=== PATIENT | female | born 1960 | race Caucasian/White ===

== ENCOUNTER 2017-04-14 16:20 | Emergency (ER) | payer BC ==
--- NOTE | 2017-04-14 17:01 | UC ---
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 LANDED ON BUTTOCKS. HAS PAIN IN TAILBONE. PAIN WHEN SITTING. ALSO HAS PAIN IN LEFT WRIST. NOT SURE IF SHE STRUCK IT ON ANYTHING. DENIES HEAD INJURY OR LOC. HAS H/O OSTEOPOROSIS SO IS VERY CONCERNED ABOUT FRACTURE. - History of Current Complaint Chief Complaint: UCUpperExtremity Stated Complaint: WRIST AND TAILBONE INJURY Time Seen by Provider: 04/14/17 16:47 Hx Obtained From: Patient, Family/Airconditioning Drafting Officer - Onset/Duration: Sudden Onset, Lasting Hours, Still Present Onset Of Pain: Immediate Severity Initially: Moderate Severity Currently: Moderate Pain Intensity: 5 Pain Scale Used: 0-10 Numeric Mechanism Of Injury: Fall From A Standing Position Aggravating Factor(s): Movement, Other: - SITTING Alleviating Factor(s): Rest Associated Signs And Symptoms: Negative: Loss Of Consciousness, Ecchymosis, Swelling - Allergies/Home Medications Allergies/Adverse Reactions: Allergies Allergy/AdvReac Type Severity Reaction Status Date / Time Sulfa Antibiotics Allergy Rash And Verified 04/14/17 16:39 Itching Home Medications: Home Medications Levothyroxine TAB* [Synthroid 75 MCG TAB*] 75 mcg PO DAILY 04/14/17 [History Confirmed 04/14/17] PMH/Surg Hx/FS Hx/Imm Hx Endocrine History: Hypothyroidism - Surgical History Surgical History: Yes Surgery Procedure, Year, and Place: lumpectomy, bunion - Family History Known Family History: Positive: Hypertension - Social History Alcohol Use: Occasionally Substance Use Type: None Smoking Status (MU): Never Smoked Tobacco Review of Systems Constitutional: Negative Skin: Negative Respiratory: Negative Cardiovascular: Negative Gastrointestinal: Negative Musculoskeletal: Arthralgia, Decreased ROM All Other Systems Reviewed And Are Negative: Yes Physical Exam Triage Information Reviewed: Yes Appearance: Well-Appearing, No Pain Distress, Well-Nourished Vital Signs: Initial Vital Signs Temp 98.9 F 04/14/17 16:22 Pulse 82 04/14/17 16:22 Resp 20 04/14/17 16:22 BP 102/53 04/14/17 16:22 Pulse Ox 99 04/14/17 16:22 Vital Signs Reviewed: Yes Eyes: Positive: Conjunctiva Clear ENT: Positive: Hearing grossly normal Neck: Positive: Supple Respiratory: Positive: No respiratory distress, No accessory muscle use Cardiovascular: Positive: Pulses Normal Abdomen Description: Positive: Soft Musculoskeletal: Positive: No Edema, ROM Limited @ - LEFT WRIST, Other: - TTP COCCYX Neurological: Positive: Alert Psychological: Positive: Age Appropriate Behavior Skin: Negative: rashes Diagnostics - Radiology LEFT WRIST XRAY Xray Interpretation: Positive (See Comments) - SOFT TISSUE SWELLING, NO FRACTURE IS SEEN Radiology Interpretation Completed By: Radiologist SACRUM/COCCYX XRAY Xray Interpretation: No Acute Changes Radiology Interpretation Completed By: Radiologist Minor Trauma Course/Dx - Differential Dx/Diagnosis Provider Diagnoses: 1. LEFT WRIST SPRAIN. 2. COCCYX INJURY Discharge - Discharge Plan Condition: Stable Disposition: HOME Patient Education Materials: Coccyx Injury (ED), Wrist Sprain (ED) Referrals: Shantal Amezcua MD [Primary Care Provider] - If Needed Herrera Gonzáles MD [Medical Doctor] - If Needed Additional Instructions: XRAYS OF LEFT WRIST AND TAILBONE NEGATIVE FOR FRACTURE OR DISLOCATION TODAY. WRIST SPLINT FOR COMFORT. REST, ICE. FOLLOW-UP WITH PCP OR ORTHO IF NOT IMPROVING EXPECTED OVER THE NEXT 2 WEEKS.
--- NOTE | 2017-04-14 17:36 | RAD ---
INDICATION: Left wrist injury. TECHNIQUE: 3 views of the left wrist were obtained. FINDINGS: There is soft tissue swelling. The bones are in normal alignment. No fracture is seen. IMPRESSION: SOFT TISSUE SWELLING, NO FRACTURE IS SEEN. IF THE PATIENT'S SYMPTOMS PERSIST RECOMMEND FOLLOW-UP IMAGING.
--- NOTE | 2017-04-14 17:36 | RAD ---
INDICATION: Sacrococcygeal injury. COMPARISON: There are no prior studies available for comparison. TECHNIQUE: 3 views of the sacrococcygeal spine were obtained. FINDINGS: The vertebra are in normal alignment. No fracture is seen. IMPRESSION: NO EVIDENCE FOR FRACTURE.
[2017-04-14 18:29] VITALS: BP 99/62
== END 2017-04-14 18:31 | disposition home or self-care (01) ==
LOC: UCEAST 16:20
DX: S39.92XA Unspecified injury of lower back, initial encounter (principal); S63.502A Unspecified sprain of left wrist, initial encounter; Z88.2 Allergy status to sulfonamides; W01.0XXA Fall on same level from slipping, tripping and stumbling without subsequent striking against object, initial encounter; Y92.9 Unspecified place or not applicable
CPT/HCPCS: 72220; 99201; G0463